=== PATIENT | female | born 1975 ===

== ENCOUNTER 2022-04-24 13:50 | Emergency (ER) | payer BC ==
[2022-04-24 14:27] VITALS: BP 159/97; PULSE 78; TEMP 98.3; BMI 35.9
[2022-04-24 15:34] LABS: HEMOGLOBIN 8.8 G/dL (10.7-15.3); MCH 26.4 pg (25.7-33.7); MCHC 33.7 g/dl (32.0-36.0); MEAN CELL VOLUME 78.4 fl (80-96); MEAN PLT VOLUME 8.9 fl (7.5-11.1); PLATELET COUNT 357.2 10^3/uL (134-434); RBC 3.31 10^6/uL (3.60-5.2); RDW 15.4 % (11.6-15.6); WHITE BLOOD COUNT 9.2 10^3/uL (4.0-10.8)
[2022-04-24 15:40] LABS: ALBUMIN 3.4 g/dl (3.4-5.0); BILIRUBIN,TOTAL 0.4 mg/dl (0.2-1); CREATININE 0.6 mg/dl (0.55-1.3); TOT PROT 6.3 g/dl (6.4-8.2)
== END 2022-04-24 18:03 | disposition home or self-care (01) ==
LOC: FER 13:50
DX: R07.9 Chest pain, unspecified (principal)
CPT/HCPCS: 36415; 71046-TC-FY; 80053; 84484; 85025; 93005; 99284-25